=== PATIENT | male | born 1935 | race African-American/Black ===

== ENCOUNTER 2017-02-21 10:06 | Emergency (ER) | payer OTHER ==
[~2017-02-21] VITALS: Ht 165.1 cm; Wt 73.0 kg
[2017-02-21] MEDS ORDERED: SODIUM CHLORIDE 0.9% 1,000 ML IV ONE (10:21)
[2017-02-21 10:41] LABS: BASOPHILS % 0.4 % (0.0-2.0); EOSINOPHILS % 0.9 % (0.0-5.0); HEMATOCRIT. 33.2 % (42.0-52.0); HEMOGLOBIN. 10.7 g/dL (14.0-18.0); LYMPHOCYTES % 12.4 % (20.0-50.0); MEAN CORPUSCULAR HEMOGLOBIN 27.4 pg (28.0-32.0); MEAN CORPUSCULAR HGB CONC 32.2 g/dL (31.0-37.0); MEAN PLATELET VOLUME 6.9 fl (7.4-10.4); MONOCYTES % 11.7 % (2.0-8.0); NEUTROPHILS % 74.6 % (40.0-76.0); PLATELET 486 x1000/uL (130-400); RED CELL DISTRIBUTION WIDTH 21.7 % (11.6-14.6); WHITE BLOOD COUNT 7.9 x1000/uL (4.5-11.0)
[2017-02-21 10:54] LABS: PROTHROMBIN TIME 46.8 sec
[2017-02-21 10:55] LABS: ALANINE AMINOTRANSFERASE 16 IU/L (13-61); ALBUMIN 2.8 g/dL (3.4-5.0); ANION GAP 14; CALCIUM 8.9 mg/dL (8.5-10.1); CARBON DIOXIDE 28 mEq/L (21-32); CHLORIDE 98 mEq/L (98-107); INDEX HEMOLYSI 1 (1-3); INDEX ICTERIC 1 (1-4); INDEX LIPEMIC 1 (1-3); UREA NITROGEN BLOOD 12 mg/dL (7-21); eGFR > 60 mL/min (>60)
[2017-02-21 11:12] LABS: INR 4.5
[2017-02-21] MEDS ORDERED: ONDANSETRON HCL 4MG/2ML VIAL IV ONE (12:45)
[2017-02-21 15:14] VITALS: BP 131/90
== END 2017-02-21 15:26 | disposition short-term general hospital (02) ==
LOC: ER 11:14
DX: R53.1 Weakness (principal); R11.10 Vomiting, unspecified; C61 Malignant neoplasm of prostate; D68.9 Coagulation defect, unspecified; C79.51 Secondary malignant neoplasm of bone; R19.7 Diarrhea, unspecified; Z92.21 Personal history of antineoplastic chemotherapy; F17.210 Nicotine dependence, cigarettes, uncomplicated
CPT/HCPCS: 36415; 80053; 85025; 85610; 96360; 96361; 99285; J2405; J7030